=== PATIENT | male | born 1945 | race Caucasian/White ===

== ENCOUNTER 2017-09-09 03:35 | Emergency (ER) | payer OTHER ==
[~2017-09-09] VITALS: Ht 182.9 cm; Wt 109.8 kg
[2017-09-09 03:40] VITALS: BP 137/76
[2017-09-09] MEDS ORDERED: GLIMEPIRIDE2 MG PO (03:45)
[2017-09-09] MEDS ORDERED: CEFUROXIME500 MG PO (03:45)
[2017-09-09] MEDS ORDERED: ATORVASTATIN CA80 M1 PO (03:46)
[2017-09-09] MEDS ORDERED: BRILINTA90 M1 PO (03:46)
[2017-09-09] MEDS ORDERED: METOPROLOL TART50 M1 PO (03:46)
[2017-09-09] MEDS ORDERED: ASPIRIN81 M4 PO (03:46)
--- NOTE | 2017-09-09 04:25 | ED ANKLE/FOOT INJURY COMPLAINT ---
History of Present Illness General Chief Complaint: Lower Extremity Problems Stated Complaint: RIGHT FOOT SWOLLEN AND THROBBING Source: patient Exam Limitations: no limitations Vital Signs & Intake/Output Vital Signs & Intake/Output Vital Signs Date Time Temp Pulse Resp B/P B/P Pulse O2 O2 Flow FiO2 Mean Ox Delivery Rate 09/09 0356 Room Air 09/09 0340 97.8 64 18 137/76 97 Room Air Allergies Coded Allergies: MDX - Meperidine (From DEMEROL) (VOMITING 05/21/11) Reconcile Medications Aspirin (Aspirin*) 81 MG TAB.CHEW 1 TAB PO DAILY HEART (Reported) Atorvastatin Calcium 80 MG TABLET 1 TAB PO DAILY CHOLESTEROL (Reported) Cefuroxime Axetil (Cefuroxime) 500 MG TABLET 1 TAB PO BID FOOT (Reported) Glimepiride 2 MG TABLET 1 TAB PO DAILY DIABETES (Reported) Metoprolol Tartrate 50 MG TABLET 1 TAB PO BID HTN (Reported) Ticagrelor (Brilinta) 90 MG TABLET 1 TAB PO BID HEART (Reported) Triage Note: PT TO TRIAGE C/O R FOOT SWELLING X2 DAYS. DENIES FALL/INJURY/ANIMAL BITES. PT SAW PCP TODAY PLACED ON CEFTIN ABX BUT PER PT "CANNOT SLEEP," D/T THROBBING. AFEBRILE. R FOOT RED AND SWOLLEN. Triage Nurses Notes Reviewed? yes HPI: Patient presents for evaluation of severe throbbing right foot pain began gradually yesterday morning. He states that he had trouble walking particularly in the morning after the onset of pain. He states it initially felt like a stiffness. It gradually got worse prompting him to see his primary care physician at about 1:00 yesterday afternoon. He had an ultrasound to rule out a DVT and also some blood tests performed. He was then placed on an antibiotic for the possibility of a skin infection. Past History Travel History Traveled to [place] past 21 day No Medical History Any Pertinent Medical History? 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 No Review of Systems Review of Systems Constitutional: Reports: no symptoms. EENTM: Reports: no symptoms. Respiratory: Reports: no symptoms. Cardiovascular: Reports: no symptoms. GI: Reports: no symptoms. Genitourinary: Reports: no symptoms. Musculoskeletal: Reports: no symptoms. Skin: Reports: see HPI. Neurological/Psychological: Reports: no symptoms. Hematologic/Endocrine: Reports: no symptoms. Immunologic/Allergic: Reports: no symptoms. All Other Systems: Reviewed and Negative Physical Exam Physical Exam Leg/Knee/Thigh Left: SEE BELOW Comments: Gen.: Well-nourished, well-developed, no acute respiratory distress. Head: Normocephalic, atraumatic. Eyes: Normal inspection bilaterally Ears: Normal inspection bilaterally Nose: Normal inspection Throat/mouth : Moist mucosa Neck: Supple, full range of motion, no goiter Heart: Regular rate and rhythm Lungs: Quiet respirations Back: Normal range of motion Extremities: Right foot: Dorsal erythema and warmth and swelling with tenderness. No apparent trauma. The foot is neurovascularly intact distally. Neurologic: Cranial nerves grossly intact, speech is clear Skin: warm and dry Psychiatric: Calm, cooperative, no apparent delusions or hallucinations Progress Differential Diagnosis: cellulitis, gout, fracture, sprain, contusion Plan of Care: Current Medications Sig/Kimberly Start time Last Medication Dose Stop Time Status Admin Indomethacin Sodium 50 MG ONCE ONE 09/09 429 UNVr (Indocin 25 MG Cap) 09/09 430 Comments: Labs reviewed, patient's uric acid level is elevated. 09/09/2017 4:34:40 AM I have updated Bruce ON test results. I held off on prescribing the meloxicam as he has an appointment with his primary care physician at 10:00 this morning. Departure Departure Disposition: HOME OR SELF CARE Condition: Stable Clinical Impression Primary Impression: Gout Qualifiers: Gout site: foot Gout etiology: idiopathic Chronicity: acute Laterality: right Qualified Code: M10.071 - Idiopathic gout, right ankle and foot Referrals: Audra [facility],Billy Alexander (PCP/Family) Additional Instructions: Meloxicam as prescribed for pain. You may continue the antibiotic as prescribed by your primary care physician although no clinical presentation and blood work is consistent with gout. Follow-up with your primary care physician later this week for reevaluation. Return if any concerns or sudden worsening. Thank you for choosing the [facility] for your care. It was a pleasure to serve you today. Venkatesh Curran M.D. [facility] Departure Forms: Customer Survey General Discharge Information
== END 2017-09-09 04:43 ==
LOC: ERH 03:35
DX: M10.9 Gout, unspecified (principal)

== ENCOUNTER 2018-01-09 07:03 | Observation (INO) | payer OTHER ==
[~2018-01-09] VITALS: Ht 182.9 cm; Wt 118.6 kg
[~2018-01-09 07:03] MED LIST: ASPIRIN81 M4 PO; ATORVASTATIN CA80 M1 PO; BRILINTA90 M1 PO; CEFUROXIME500 MG PO; GLIMEPIRIDE2 MG PO; METOPROLOL TART50 M1 PO
[2018-01-09] MEDS ORDERED: LISINOPRIL40 M1 PO (07:29)
[2018-01-09] MEDS ORDERED: ALLOPURINOL100 M1 PO (07:29)
[2018-01-09] MEDS ORDERED: PREDNISONE5 M1 PO (07:31)
[2018-01-09] MEDS ORDERED: TOPROL XL100 M1 PO (07:31)
[2018-01-09 07:40] LABS: ABSOLUTE BASOPHIL COUNT 0 /CUMM (0.0-0.2); ABSOLUTE EOSINOPHIL COUNT 0.2 /CUMM (0.0-0.7); ABSOLUTE GRANULOCYTE CT 8.3 /CUMM (1.4-6.5); ABSOLUTE LYMPH COUNT 0.9 /CUMM (1.2-3.4); ABSOLUTE MONOCYTE COUNT 0.7 /CUMM (0.10-0.60); BASOPHIL % 0.3 % (0.0-2.0); EOSINOPHIL % 1.6 % (0-5); GRANULOCYTE % 82.8 % (42.2-75.2); HEMATOCRIT 38.4 % (42-52); MEAN CORPUSCULAR HGB 28.6 PG (27.0-31.0); MEAN CORPUSCULAR HGB CONC 32.7 G/DL (33.0-37.0); MEAN CORPUSCULAR VOLUME 87.4 FL (80.0-94.0); PLATELET COUNT 201 /CUMM (130-400); RBC DISTRIBUTION WIDTH 16.4 % (11.5-14.5); RED BLOOD CELL CT 4.39 /CUMM (4.70-6.10)
--- NOTE | 2018-01-09 08:21 | ED DYSPNEA/ASTHMA COMPLAINT ---
History of Present Illness General Chief Complaint: Dyspnea (COPD, CHF, Other) Stated Complaint: SOB Source: patient, family, old records Exam Limitations: no limitations Vital Signs & Intake/Output Vital Signs & Intake/Output Vital Signs Date Time Temp Pulse Resp B/P B/P Pulse O2 O2 Flow FiO2 Mean Ox Delivery Rate 01/09 858 98.4 65 18 148/81 01/09 858 98.4 65 18 148/81 98 Nasal 2.0L Cannula 01/09 721 98 Room Air 01/09 718 80 18 177/89 95 Room Air 01/09 705 95.9 70 22 170/91 94 Room Air Allergies Coded Allergies: meperidine (Mild, VOMITING 01/09/18) Reconcile Medications Allopurinol 100 MG TABLET 1 TAB PO DAILY GOUT (Reported) Aspirin (Aspirin*) 81 MG TAB.CHEW 1 TAB PO DAILY HEART (Reported) Atorvastatin Calcium 80 MG TABLET 1 TAB PO DAILY CHOLESTEROL (Reported) Glimepiride 2 MG TABLET 1 TAB PO DAILY DIABETES (Reported) Lisinopril 40 MG TABLET 1 TAB PO DAILY BP (Reported) Metoprolol Succ XL (Toprol XL) 100 MG TAB.ER.24H 1 TAB PO DAILY BP (Reported) Prednisone 5 MG TABLET 1 TAB PO DAILY GOUT (Reported) Ticagrelor (Brilinta) 90 MG TABLET 1 TAB PO BID HEART (Reported) Core Measure Meds Pre-Hospital aspirin Triage Note: 72 YO MALE TO TRIAGE FOR EVAL OF SOB SINCE THIS AM. PT DENIES ANY PAIN. RA SATS 94%. HX OF [place] IN SEPTEMBER. Triage Nurses Notes Reviewed? yes Onset: Morning Duration: hour(s):, better, continues in ED Timing: recent history Severity: moderate Activities at Onset: rest Prior Episodes/Possible Cause: no prior episodes Modifying Factors: Improves With: rest. Worsens With: movement. Associated Symptoms: weakness HPI: 3 hours prior to admission patient awoke with generalized weakness and diaphoresis shortness of breath worse with ambulation. Symptoms are now better he took his morning meds including aspirin. He denies fever chills nausea vomiting diarrhea abdominal pain chest pain headache dysuria rash bleeding. Past History Travel History Traveled to [place] past 21 day No Medical History Any Pertinent Medical History? 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 No Review of Systems Review of Systems Constitutional: Reports: see HPI, weakness. EENTM: Reports: no symptoms. Respiratory: Reports: see HPI, short of breath. Cardiovascular: Reports: no symptoms. GI: Reports: no symptoms. Genitourinary: Reports: no symptoms. Musculoskeletal: Reports: no symptoms. Skin: Reports: no symptoms. Neurological/Psychological: Reports: no symptoms. Hematologic/Endocrine: Reports: no symptoms. Immunologic/Allergic: Reports: no symptoms. All Other Systems: Reviewed and Negative Physical Exam Physical Exam General Appearance: well developed/nourished, alert, awake, anxious, mild distress, obese Head: atraumatic, normal appearance Eyes: Bilateral: normal appearance, PERRL, EOMI. Ears, Nose, Throat: normal pharynx, normal ENT inspection, hearing grossly normal Neck: normal inspection, supple, full range of motion, no midline tenderness Respiratory: chest non-tender, no respiratory distress, quiet respiration, crackles Cardiovascular: regular rate/rhythm, normal peripheral pulses, norml femoral pulses equa Peripheral Pulses: 4+ carotid (R), 4+ carotid (L) Gastrointestinal: normal bowel sounds, soft, non-tender, no organomegaly Extremities: normal inspection, normal capillary refill, normal range of motion, pedal edema (trace) Neurologic/Psych: no motor/sensory deficits, awake, alert, oriented x 3, normal gait, normal mood/affect, 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 Yes No ASA d/t Pharmacological CI CVA/TIA Diagnosis No Sepsis Present: No Sepsis Focused Exam Completed? No Progress Differential Diagnosis: CHF, COPD, pneumonia Plan of Care: Orders Procedure Date/time Status Heart Healthy Diet 01/09 L Active Patient Data 01/09 842 Active OXYGEN SETUP (GEN) 01/09 822 Active Saline Lock 01/[address] in observation 01/09 822 Active Vital Signs 01/09 822 Active Activity/Ambulation 01/09 822 Active Code Status 01/09 822 Active Intake & Output 01/09 725 Active TROPONIN LEVEL 01/09 721 Complete MAGNESIUM 01/09 721 Complete COMPREHENSIVE METABOLIC PANEL 01/09 721 Complete CBC WITHOUT DIFFERENTIAL 01/09 721 Complete B-TYPE NATRIURETIC PEP (BNP) 01/09 721 Complete EKG 01/09 709 Active Current Medications Sig/Kimberly Start time Last Medication Dose Stop Time Status Admin Allopurinol 100 MG DAILY 01/10 900 AC (Zyloprim) Aspirin 81 MG DAILY 01/10 900 AC (Aspirin) Atorvastatin Calcium 80 MG DAILY 01/10 900 AC (Lipitor) Metoprolol Succinate 100 MG DAILY 01/10 900 AC (Toprol Xl) Ticagrelor 90 MG BID 01/09 2100 AC (Brilinta) Prednisone 5 MG DAILY 01/09 930 AC Laboratory Tests 01/09/18722: Anion Gap 8, Estimated GFR 55 L, BUN/Creatinine Ratio 20.0, Glucose 153 H, Calcium 8.6, Magnesium 1.5 L, Total Bilirubin 0.8, AST 41, ALT 68, Alkaline Phosphatase 129 H, Troponin I 0.08, Djx-[id number]-Hdgftqnumds Pept 1400 H, Total Protein 6.3, Albumin 3.7, Globulin 2.6, Albumin/Globulin Ratio 1.4, CBC w Diff NO MAN DIFF REQ, RBC 4.39 L, MCV 87.4, MCH 28.6, MCHC 32.7 L, RDW 16.4 H, MPV 9.0, Gran % 82.8 H, Lymphocytes % 8.8 L, Monocytes % 6.5, Eosinophils % 1.6, Basophils % 0.3, Absolute Granulocytes 8.3 H, Absolute Lymphocytes 0.9 L, Absolute Monocytes 0.7 H, Absolute Eosinophils 0.2, Absolute Basophils 0 Diagnostic Imaging: Viewed by Me: Radiology Read. Discussed w/RAD: Radiology Read. CXR Impression: Cardiomegaly with mild pulmonary vascular congestion. Initial ED EKG: normal axis, normal intervals, normal p-waves, normal QRS complex, normal sinus rhythm, ST depression (lateral), abnormal Q waves ( inferior) Prior EKG: changed Rhythm Strip: normal sinus rhythm Departure Departure Disposition: STILL A PATIENT Condition: Fair Clinical Impression Primary Impression: ST segment changes on electrocardiogram Secondary Impressions: CHF (congestive heart failure), Dyspnea, Hypomagnesemia Referrals: Tiffanie AGUILAR,Corey Garcia (PCP/Family) Departure Forms: Customer Survey General Discharge Information Admission Note Documentation of Exam: Documentation of any treatments & extenuating circumstances including Concerns Regarding Discharge (functional status, medication knowledge or non-compliance, living conditions, etc.) that warrant an admission rather than observation: Observation Note Spoke With: Miya Rivera MD Physician Advisor Notified: NOEMI PAZ DO Place Patient In: Non-ED OBS Care Area Rationale for Observation: My rational for observation is as follows serial lab exam serial EKG cardiac monitoring medication adjustment cardiology evaluation continuing care discharge planning. Critical Care Note Critical Care Note Critical Care Time: non-applicable
--- NOTE | 2018-01-09 08:30 | RADIOLOGY REPORT ---
EXAMINATION: XR PORTABLE CHEST CLINICAL INFORMATION: SOB, as CHF and diaphoresis. COMPARISON: None TECHNIQUE: Portable frontal view of the chest was obtained. FINDINGS: There is overlying cardiomegaly with increased pulmonary vascularity suggestive mild congestion. The lungs are expanded without consolidation. No gross bony abnormality seen. IMPRESSION: Cardiomegaly with mild pulmonary vascular congestion.
[2018-01-09] MEDS ORDERED: LISINOPRIL20 M1 PO (09:35)
--- NOTE | 2018-01-09 09:53 | History & Physical ---
Cliff Lyon 01/09/18 0952: General Information and HPI MD Statement: I have seen and personally examined JEREMY BLAIR and documented this H&P. The patient is a 72 year old M who presented with a patient stated chief complaint of shortness of breath Source of Information: patient, family Exam Limitations: no limitations History of Present Illness: This is a 72-year-old male with past medical history significant for OH status post drug eluting stent placement in 2018, on dual antiplatelet agents, gout, diabetes mellitus, hypertension, carpal tunnel syndrome presented to the hospital with chief complaint of acute worsening shortness of breath since morning. Patient presented with acute worsening shortness of breath which started earlier this morning around 4 AM. He reports sudden onset of shortness of breath at resting situation associated with extreme sweating. He denied any typical chest pain, jaw pain, nausea, vomiting, diaphoresis. Patient had recent heart attack in September 2017, admitted to [facility]. He underwent coronary angiogram s/p drug-eluting stent was placed. Since then he has been taking dual antiplatelets aspirin 81 and Brilinta 90 daily. He has been following up Dr. Chavez financial investment adviser. He has no cardiac complaints after the surgery. Not sure about his baseline echocardiogram results. Also recently he was treated for acute gout as an outpatient basis with prednisone and antibiotic. He denied any fever, chills, chest pain, nausea, vomiting, abdominal pain, change in bladder or bowel habits. He denies smoking, alcohol abuse, illicit drug abuse. Allergies/Medications Allergies: Coded Allergies: meperidine (Mild, VOMITING 01/09/18) Home Med list Allopurinol 100 MG TABLET 1 TAB PO DAILY GOUT (Reported) Aspirin (Aspirin*) 81 MG TAB.CHEW 1 TAB PO DAILY HEART (Reported) Atorvastatin Calcium 80 MG TABLET 1 TAB PO DAILY CHOLESTEROL (Reported) Glimepiride 2 MG TABLET 1 TAB PO DAILY DIABETES (Reported) Lisinopril 20 MG TABLET 1 TAB PO DAILY HTN (Reported) Metoprolol Succ XL (Toprol XL) 100 MG TAB.ER.24H 1 TAB PO DAILY BP (Reported) Prednisone 5 MG TABLET 1 TAB PO DAILY GOUT (Reported) Ticagrelor (Brilinta) 90 MG TABLET 1 TAB PO BID HEART (Reported) Compliance With Home Meds: GOOD Past History Travel History Traveled to [place] past 21 day No Medical History Neurological: NONE EENT: NONE Cardiovascular: hypertension, myocardial infarction, STENT Respiratory: NONE Gastrointestinal: NONE Hepatic: NONE Renal: NONE Musculoskeletal: gout Psychiatric: NONE Endocrine: diabetes Blood Disorders: NONE Cancer(s): NONE 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 Denies: chills, diaphoresis, fever, malaise, weakness, unexplained weight loss. EENTM: Denies: blurred vision, double vision, visual changes. Cardiovascular: Denies: chest pain, edema, orthopena, palpitations, peripheral edema, syncope. Respiratory: Reports: short of breath. Denies: cough, hemoptysis, orthopnea, sputum production. GI: Denies: abdominal pain, bloating, constipation, diarrhea, distention, bowel incontinence, melena, nausea. Genitourinary: Denies: discharge, dysuria, frequency. Musculoskeletal: Denies: back pain, gout, joint pain, joint swelling. Skin: Denies: cysts, jaundice, lesions. Neurological/Psychological: Denies: anxiety, ataxia, dementia, emotional problems, headache, numbness, paresthesia. Exam & Diagnostic Data Last 24 Hrs of Vital Signs/I&O Vital Signs Date Time Temp Pulse Resp B/P B/P Pulse O2 O2 Flow FiO2 Mean Ox Delivery Rate 01/09 858 98.4 65 18 148/81 01/09 858 98.4 65 18 148/81 98 Nasal 2.0L Cannula 01/09 0721 98 Room Air 01/09 0718 80 18 177/89 95 Room Air 01/09 0705 95.9 70 22 170/91 94 Room Air Intake & Output 01/09 1600 01/09 0800 01/09 0000 Intake Total 0 Output Total Balance 0 Intake, Oral 0 Patient 111.13 kg Weight Weight Reported by Patient Measurement Method Physical Exam General Appearance Alert, Oriented X3, Cooperative, No Acute Distress Skin No Rashes, No Breakdown Skin Temp/Moisture Exam: Warm/Dry Sepsis Skin Exam (color): Normal for Ethnicity HEENT Atraumatic, PERRLA, EOMI, Mucous Membr. moist/pink Neck Supple, No JVD, No thryomegaly Lymphatic Cervical nl Cardiovascular Regular Rate, Normal S1, Normal S2, No Murmurs Lungs Clear to Auscultation, Normal Air Movement Abdomen Normal Bowel Sounds, Soft, No Tenderness Neurological Normal Speech, Strength at 5/5 X4 Ext, Sensation Intact, Reflexes 2 + Extremities No Clubbing, No Cyanosis, No Edema, Normal Pulses, No Tenderness/ Swelling Vascular Normal Pulses, Pulses Symmetrical Last 24 Hrs of Labs/Sampson: Laboratory Tests 01/09/18 0723: Anion Gap 8, Estimated GFR 55 L, BUN/Creatinine Ratio 20.0, Glucose 153 H, Calcium 8.6, Magnesium 1.5 L, Total Bilirubin 0.8, AST 41, ALT 68, Alkaline Phosphatase 129 H, Troponin I 0.08, Zde-V-Dipnfbfdhoc Pept 1400 H, Total Protein 6.3, Albumin 3.7, Globulin 2.6, Albumin/Globulin Ratio 1.4, CBC w Diff NO MAN DIFF REQ, RBC 4.39 L, MCV 87.4, MCH 28.6, MCHC 32.7 L, RDW 16.4 H, MPV 9.0, Gran % 82.8 H, Lymphocytes % 8.8 L, Monocytes % 6.5, Eosinophils % 1.6, Basophils % 0.3, Absolute Granulocytes 8.3 H, Absolute Lymphocytes 0.9 L, Absolute Monocytes 0.7 H, Absolute Eosinophils 0.2, Absolute Basophils 0 Assessment/Plan Assessment: This is a 72-year-old male with past medical history significant for OH status post drug eluting stent placement in 2018, on dual antiplatelet agents, gout, diabetes mellitus, hypertension, carpal tunnel syndrome presented to the hospital with chief complaint of acute worsening shortness of breath since morning. Vitals afebrile, heart rate 70, respiratory rate 22 , blood pressure 170/90, saturating at 94 on ra. Labs WBC 10, hemoglobin 12, hematocrit 38, platelets 201 Sodium 140, potassium 4.8, BUN 26, creatinine 1.3, glucose 153 Chest x-ray showed cardiomegaly with mild pulmonary venous congestion EKG normal sinus rhythm, rate 74, left axis deviation, minor ST-T wave changes in V2 V3 V4. No baseline EKG to compare ----- EKG changes Patient had recent heart attack in September 2017, admitted to [facility]. He underwent coronary angiogram s/p drug-eluting stent was placed. Since then he has been taking dual antiplatelets aspirin 81 and Brilinta 90 daily. He has been following up Dr. Chavez financial investment adviser. He has no cardiac complaints after the surgery. Not sure about his baseline echocardiogram results. Patient now presented with acute worsening shortness of breath. First set of troponin was negative with EKG findings suggestive of minimal ST changes in V2 V3 V4. * Observation in telemetry floor * Serial troponins and EKG * Cardiology consult with Dr. Jordan * Continuous telemetry monitoring * Continue aspirin 81 daily, Lipitor 80 daily, Brilinta 90 daily * Continue metoprolol succinate 100 daily * Follow-up echocardiogram Acute dyspnea Patient presented with sudden onset of worsening shortness of breath. Off note patient reports that he has no history of heart failure, does not take any Lasix at home. He does not use any oxygen at home. He has no history of COPD. * Given his recent heart attack, new onset heart failure is one of the possibilities. No baseline echocardiogram. * Observing telemetry floor * Continuous telemetry monitoring * Follow-up echocardiogram * Serial troponin and EKGs * Monitor ins and outs * Lasix 40 mg p.o. daily pending cardio recommendations * Follow-up creatinine and electrolytes * Will get records from [facility] Gout continue allopurinol 100 daily and prednisone 5 daily Diabetes Accu-Cheks and NovoLog sliding scale Hypertension continue lisinopril 20 daily and metoprolol succinate 100 daily Patient is full code DVT prophylaxis subcu heparin Regular diet Pain pathway ordered As Ranked By This Provider Problem List: 1. Hypomagnesemia 2. CHF (congestive heart failure) 3. Gout 4. Dyspnea 5. ST segment changes on electrocardiogram Core Measures/Misc (01/18) Acute Coronary Syndrome ACS Diagnosis: No Congestive Heart Failure Congestive Heart Failure Diagnosis No Cerebrovascular Accident CVA/TIA Diagnosis: No VTE (View Protocol) VTE Risk Factors No risk factors No Mechanical VTE Prophylaxis d/t N/A MechProphylax Ordered No VTE Pharm Prophylaxis d/t NA PharmProphylax ordered Sepsis (View protocol) Sepsis Present: No If YES complete Sepsis Event Note If YES complete Sepsis Event Note Miguel AGUILAR,Miya 01/09/18 1530: Core Measures/Misc (01/18) Sepsis (View protocol) If YES complete Sepsis Event Note If YES complete Sepsis Event Note Attending MD Review Statement Attending Statement Attending MD Statement: examined this patient, discuss w/resident/PA/TECHNOLOGY STRATEGIST, agreed w/resident/PA/TECHNOLOGY STRATEGIST, discussed with family, reviewed EMR data (avail), discussed with nursing, reviewed images, amended to note Attending Assessment/Plan: 72 y/o M with h sig for OH status post drug eluting stent placement in 2018, on dual antiplatelet agents, gout, diabetes mellitus, hypertension, carpal tunnel syndrome, presented with shortness of breath, diaphoresis and restlessness. The symptoms occurred early in the morning between around 45:00. Patient took his prednisone and he normally does feel restless for some time. This restlessness lasted a long time this morning and patient also felt short of breath with diaphoresis therefore he presented to the emergency room. In the emergency room he had some nonspecific EKG changes but troponins were negative. Chest x-ray showing mild pulmonary vascular congestion. Patient denies any weight gain or swelling. Vital Signs Date Time Temp Pulse Resp B/P B/P Pulse O2 O2 Flow FiO2 Mean Ox Delivery Rate 01/09 1448 98.8 66 20 140/76 96 Room Air 01/09 1156 98.6 79 22 132/76 97 Room Air Room Air 01/09 0858 98.4 65 18 148/81 01/09 0858 98.4 65 18 148/81 98 Nasal 2.0L Cannula 01/09 0721 98 Room Air 01/09 0718 80 18 177/89 95 Room Air 01/09 0705 95.9 70 22 170/91 94 Room Air on exam; aox3, nad cv; s1,s2, rrr resp; clear abd; soft, nt, bs+ ext; 1+ edema Laboratory Tests 01/09 01/09 1320 0723 Chemistry Sodium (137 - 145 mmol/L) 140 Potassium (3.5 - 5.1 mmol/L) 4.8 Chloride (98 - 107 mmol/L) 107 Carbon Dioxide (22 - 30 mmol/L) 25 Anion Gap (5 - 16) 8 BUN (9 - 20 mg/dL) 26 H Creatinine (0.7 - 1.2 mg/dL) 1.3 H Estimated GFR (>60 ml/min) 55 L BUN/Creatinine Ratio (7 - 25 %) 20.0 Glucose (65 - 99 mg/dL) 153 H Calcium (8.4 - 10.2 mg/dL) 8.6 Magnesium (1.6 - 2.3 mg/dL) 1.5 L Total Bilirubin (0.2 - 1.3 mg/dL) 0.8 AST (17 - 59 U/L) 41 ALT (21 - 72 U/L) 68 Alkaline Phosphatase (< 127 U/L) 129 H Troponin I (<0.11 ng/ml) Pending 0.08 [id number] Pept (<125 pg/mL) 1400 H Total Protein (6.3 - 8.2 g/dL) 6.3 Albumin (3.5 - 5.0 g/dL) 3.7 Globulin (1.9 - 4.2 gm/dL) 2.6 Albumin/Globulin Ratio (1.1 - 2.2 %) 1.4 Hematology CBC w Diff NO MAN DIFF REQ WBC (4.8 - 10.8 /CUMM) 10.0 RBC (4.70 - 6.10 /CUMM) 4.39 L Hgb (14.0 - 18.0 G/DL) 12.6 L Hct (42 - 52 %) 38.4 L MCV (80.0 - 94.0 FL) 87.4 MCH (27.0 - 31.0 PG) 28.6 MCHC (33.0 - 37.0 G/DL) 32.7 L RDW (11.5 - 14.5 %) 16.4 H Plt Count (130 - 400 /CUMM) 201 MPV (7.4 - 10.4 FL) 9.0 Gran % (42.2 - 75.2 %) 82.8 H Lymphocytes % (20.5 - 51.1 %) 8.8 L Monocytes % (1.7 - 9.3 %) 6.5 Eosinophils % (0 - 5 %) 1.6 Basophils % (0.0 - 2.0 %) 0.3 Absolute Granulocytes (1.4 - 6.5 /CUMM) 8.3 H Absolute Lymphocytes (1.2 - 3.4 /CUMM) 0.9 L Absolute Monocytes (0.10 - 0.60 /CUMM) 0.7 H Absolute Eosinophils (0.0 - 0.7 /CUMM) 0.2 Absolute Basophils (0.0 - 0.2 /CUMM) 0 EKG>> NSR. CXR: Mild pulm vascular congestion. A/P: 72 y/o M with pmh sig for OH status post drug eluting stent placement in 2018, on dual antiplatelet agents, gout, diabetes mellitus, hypertension, carpal tunnel syndrome on telemetry observation with shortness of breath, need to rule out ACS and possible mild acute CHF. Please trend troponins. Appreciate cardiology input. Follow up an echocardiogram. Continue his home cardiac medications. Low-dose Lasix will be added. Please monitor strict intake and output as well as daily weights. Pharmacologic DVT prophylaxis and patient is a full code.
--- NOTE | 2018-01-09 11:00 | Cons- Cardiology ---
Coopre Marc 01/09/18 1058: General Information and HPI Consulting Request Date of Consult: 01/09/18 Requested By: Miya Rivera MD Reason for Consult: Dyspnea Source of Information: patient, family, old records Exam Limitations: no limitations History of Present Illness: This is a pleasant 72-year-old male with history of coronary artery disease status post CHUY to proximal RCA September 2017, [id number] CAD to LAD left circumflex, diabetes hypertension chronic kidney disease gout presents to the emergency room with family for evaluation after he developed sudden onset of shortness of breath diaphoresis since 4:00 this morning. Patient states he denies chest pain,palpitations,nausea vomiting. He was in normal state of health yesterday-went to the gym and exercisedon the treadmill and bike without issue or symptoms. He is currently on prednisone for gout exacerbation. He denies history of similar episodes in the past. No recent weight gain leg edema abdominal pain nausea vomiting diarrhea. In the ED,EKG showed new lateral changes compared to previous ER ekg [id number]. Initial troponin 0.08, bnp 1400. CXR demonstrated mild pulmonary congestion. Currently the patient is resting in no acute distress he denies any complaints at this time, he was initially on O2 2 L with significant improvement and resolution. He has been compliant with all of his home medications Allergies/Medications Allergies: Coded Allergies: meperidine (Mild, VOMITING 01/09/18) Home Med List: Allopurinol 100 MG TABLET 1 TAB PO DAILY GOUT (Reported) Aspirin (Aspirin*) 81 MG TAB.CHEW 1 TAB PO DAILY HEART (Reported) Atorvastatin Calcium 80 MG TABLET 1 TAB PO DAILY CHOLESTEROL (Reported) Glimepiride 2 MG TABLET 1 TAB PO DAILY DIABETES (Reported) Lisinopril 20 MG TABLET 1 TAB PO DAILY HTN (Reported) Metoprolol Succ XL (Toprol XL) 100 MG TAB.ER.24H 1 TAB PO DAILY BP (Reported) Prednisone 5 MG TABLET 1 TAB PO DAILY GOUT (Reported) Ticagrelor (Brilinta) 90 MG TABLET 1 TAB PO BID HEART (Reported) Current Medications: Current Medications Sig/Kimberly Start time Last Medication Dose Route Stop Time Status Admin Acetaminophen 650 MG Q6P PRN 01/09 945 AC PO Allopurinol 100 MG DAILY 01/10 900 AC PO Aspirin 81 MG DAILY 01/10 900 AC PO Atorvastatin Calcium 80 MG DAILY 01/10 900 AC PO Furosemide 40 MG DAILY 01/10 900 AC PO Furosemide 0 .STK-MED ONE 01/10 0849 DC IV Furosemide 40 MG ONCE ONE 01/09 845 DC 01/09 IV 01/10 0846 0858 Heparin Sodium 5,000 UNIT Q8 01/09 945 AC (Porcine) SC Insulin Aspart 0 TIDAC 01/09 1000 AC SC Lisinopril 20 MG DAILY 01/10 900 AC PO Magnesium Oxide 400 MG ONE ONE 01/10 0845 DC 01/09 PO 01/10 0846 0910 Metoprolol Succinate 100 MG DAILY 01/10 900 AC PO Metoprolol Tartrate 0 .STK-MED ONE 01/10 0849 DC IV Metoprolol Tartrate 5 MG ONCE ONE 01/09 845 DC IV 01/09 846 Prednisone 5 MG DAILY 01/09 930 AC PO Ticagrelor 90 MG BID 01/09 2100 AC PO Review of Systems Review of Systems: Review of systems: See HPI, All other systems negative. Constitutional, no chills no fever, no malaise no weight loss HEENT: no sore throat no congestion, no ear pain Cardiovascular: No chest pain , no palpitation Skin: no rashes, no change in skin Respiratory: (+) dyspnea no cough no sputum no hemoptysis GI: No nausea no vomiting, no diarrhea, no bloating/constipation : No dysuria Muscle skeletal: No joint pain, no back pain, no neck pain, Neurologic: , no headache Psych: No stress Heme/endocrine: No bruising Immunology: No lymphadenopathy Past History Travel History Traveled to [place] past 21 day No Medical History Neurological: NONE EENT: NONE Cardiovascular: hypertension, myocardial infarction (chuy to prox RCA), STENT Respiratory: NONE Gastrointestinal: NONE Hepatic: NONE Renal: NONE Musculoskeletal: gout Psychiatric: NONE Endocrine: diabetes Blood Disorders: NONE Cancer(s): NONE 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 Surgical History Surgical History: PTCA / stent Psychosocial History Smoking Status: Never Smoked ETOH Use: denies use Illicit Drug Use: denies illicit drug use Exam & Diagnostic Data Vital Signs and I&O Vital Signs Date Time Temp Pulse Resp B/P B/P Pulse O2 O2 Flow FiO2 Mean Ox Delivery Rate 01/09 858 98.4 65 18 148/81 01/09 858 98.4 65 18 148/81 98 Nasal 2.0L Cannula 01/09 721 98 Room Air 01/09 0718 80 18 177/89 95 Room Air 01/09 705 95.9 70 22 170/91 94 Room Air Intake & Output 01/09 0000 01/08 0000 Intake Total 0 Output Total Balance 0 Intake, Oral 0 Patient 245 lb Weight Weight Reported by Patient Measurement Method Physical Exam: Well-developed well-nourished person in no acute distress HEENT: Normal EENT exam; PERRL, EOMI. HEAD is atraumatic. moist mucous membranes. Neck: Supple, normal range of motion Cardiovascular: Regular rate and rhythms no murmurs rubs or gallops, normal JVP Respiratory: Chest nontender.There were no bony deformities, no asymmetry. No respiratory distress. Patient speaking in full complete sentences. Breath sounds clear to auscultation bilaterally: NO W/R/R Abdomen: Soft, nontender Extremity: No edema, full range of motion of extremities, normal and equal pulses bilaterally, 5 out of 5 strength noted to bilateral upper and lower extremities Neuro: Alert oriented x3, motor sensory normal There were no obvious focal neurologic abnormalities. Skin: No appreciable rash on exposed skin, skin is warm and dry. Psych: Mood and affect is normal, memory and judgment is normal. Labs/Sampson Results: Laboratory Tests 01/09 723 Chemistry Sodium (137 - 145 mmol/L) 140 Potassium (3.5 - 5.1 mmol/L) 4.8 Chloride (98 - 107 mmol/L) 107 Carbon Dioxide (22 - 30 mmol/L) 25 Anion Gap (5 - 16) 8 BUN (9 - 20 mg/dL) 26 H Creatinine (0.7 - 1.2 mg/dL) 1.3 H Estimated GFR (>60 ml/min) 55 L BUN/Creatinine Ratio (7 - 25 %) 20.0 Glucose (65 - 99 mg/dL) 153 H Calcium (8.4 - 10.2 mg/dL) 8.6 Magnesium (1.6 - 2.3 mg/dL) 1.5 L Total Bilirubin (0.2 - 1.3 mg/dL) 0.8 AST (17 - 59 U/L) 41 ALT (21 - 72 U/L) 68 Alkaline Phosphatase (< 127 U/L) 129 H Troponin I (<0.11 ng/ml) 0.08 [id number]-Nczqgfesvhb Pept (<125 pg/mL) 1400 H Total Protein (6.3 - 8.2 g/dL) 6.3 Albumin (3.5 - 5.0 g/dL) 3.7 Globulin (1.9 - 4.2 gm/dL) 2.6 Albumin/Globulin Ratio (1.1 - 2.2 %) 1.4 Hematology CBC w Diff NO MAN DIFF REQ WBC (4.8 - 10.8 /CUMM) 10.0 RBC (4.70 - 6.10 /CUMM) 4.39 L Hgb (14.0 - 18.0 G/DL) 12.6 L Hct (42 - 52 %) 38.4 L MCV (80.0 - 94.0 FL) 87.4 MCH (27.0 - 31.0 PG) 28.6 MCHC (33.0 - 37.0 G/DL) 32.7 L RDW (11.5 - 14.5 %) 16.4 H Plt Count (130 - 400 /CUMM) 201 MPV (7.4 - 10.4 FL) 9.0 Gran % (42.2 - 75.2 %) 82.8 H Lymphocytes % (20.5 - 51.1 %) 8.8 L Monocytes % (1.7 - 9.3 %) 6.5 Eosinophils % (0 - 5 %) 1.6 Basophils % (0.0 - 2.0 %) 0.3 Absolute Granulocytes (1.4 - 6.5 /CUMM) 8.3 H Absolute Lymphocytes (1.2 - 3.4 /CUMM) 0.9 L Absolute Monocytes (0.10 - 0.60 /CUMM) 0.7 H Absolute Eosinophils (0.0 - 0.7 /CUMM) 0.2 Absolute Basophils (0.0 - 0.2 /CUMM) 0 Diagnostic Data EKG Results Normal sinus rhythm at 70, nonspecific ST segment changes unchanged from EKG as an outpatient on September 23 of this year. Personally reviewed by me. Telemetry: Sinus rhythm at 70s personally reviewed by me CXR Results FINDINGS: There is overlying cardiomegaly with increased pulmonary vascularity suggestive mild congestion. The lungs are expanded without consolidation. No gross bony abnormality seen. IMPRESSION: Cardiomegaly with mild pulmonary vascular congestion. Assessment/Plan Assessment/Plan 72-year-old male with history of coronary artery disease status post CHUY to proximal RCA September 2017, [id number] CAD to LAD left circumflex, diabetes hypertension chronic kidney disease gout presents to the emergency room with family for evaluation after he developed sudden onset of shortness of breath diaphoresis with new EKG changes from previous ER EKG Assessment: Shortness of breath History of coronary artery disease s/p CHUY to prox RCA 09/18 History of diabetes History of hypertension Recommendations: The EKG obtained in the ED is unchanged from outpatient EKG in September 2017. The patient denies any symptoms are current. Bedside TTE was performed pending results. Would continue current home medical management. Continue home metoprolol aspirin Brilinta. Continuous telemetry monitoring. Trend BMP. Lasix 20 mg daily, trend troponin The plan was discussed with Dr. bowers. Addendum to follow. Thank you for the opportunity to assist in the patient's care. These do not hesitate to call with any questions. Cooper Geiger PA-C [facility] [address] [place] [address], [address] [place] [address] Consult Acknowledgment - Thank you for your consult request. Taran Bowers MD 01/09/18 1147: Assessment/Plan Assessment/Plan The patient was seen and examined at the bedside. I directed and agree with the above assessment and plan. Patient will be placed on observation. An echocardiogram will be obtained. Continue to diuresis. If patient remains stable we will consider discharge tomorrow. Taran Bowers MD [facility] Consult Acknowledgment - Thank you for your consult request.
[2018-01-09 11:56] VITALS: BP 132/76
[2018-01-09 14:48] VITALS: BP 140/76
--- NOTE | 2018-01-09 19:42 | ECHOCARDIOGRAM REPORT ---
JEREMY BLAIR Age: 72 : 1945 Gender: M Exam Date: 01/09/2018 10:20 Exam Location: ER Ht (in): 72 Wt (lb): 245 BSA: 2.41 BP: 171 / 94 Ordering Physician: Melodie Lyon MD Referring Physician: Melodie Lyon MD Technologist: Vandana Hunt [facility] Room Number: ERHI-03 Indications: Cardiomyopathy, unspecified Rhythm: Technical Quality: Fair FINDINGS Left Ventricle Normal size left ventricle. Left ventricular wall thickness mildly increased. No obvious regional wall motion abnormalities. Left ventricular ejection fraction is estimated at 55 %. Right Ventricle Normal right ventricular size and function. Right Atrium Normal right atrial size. Left Atrium Mild left atrial dilatation. Mitral Valve Mild mitral annular calcification. Mild mitral regurgitation. Aortic Valve No aortic stenosis. Trileaflet aortic valve. Tricuspid Valve No tricuspid stenosis. Trace tricuspid regurgitation. Unable to estimate the right ventricular systolic pressure. Pulmonic Valve Pulmonic valve not well visualized, grossly normal. Pericardium No pericardial effusion. Great Vessels Normal size aortic root. CONCLUSIONS Normal size left ventricle. Left ventricular wall thickness mildly increased. No obvious regional wall motion abnormalities. Left ventricular ejection fraction is estimated at 55 %. Normal right ventricular size and function. Mild left atrial dilatation. Unable to estimate the right ventricular systolic pressure. No pericardial effusion. Viet Rivera M.D. (Electronically Signed) Final Date: 09 January 2018 19:39 MEASUREMENTS (Male / Female) Normal Values 2D ECHO LV Diastolic Diameter PLAX 4.5 cm 4.2 - 5.9 / 3.9 - 5.3 cm LV Systolic Diameter PLAX 3.3 cm 2.1 - 4.0 cm LV Fractional Shortening PLAX 26.7 % 25 - 46 % LV Ejection Fraction 2D Teich 52.3 % IVS Diastolic Thickness 1.4 cm LVPW Diastolic Thickness 1.1 cm LV Relative Wall Thickness 0.6 LVOT Diameter 2.0 cm Aortic Root Diameter 3.2 cm LA Systolic Diameter LX 3.5 cm 3.0 - 4.0 / 2.7 - 3.8 cm LA Volume 85.0 cm 18 - 58 / 22 - 52 cm DOPPLER AV Peak Velocity 140.0 cm/s AV Peak Gradient 7.8 mmHg LVOT Peak Velocity 96.3 cm/s LVOT Peak Gradient 3.7 mmHg AV Area Cont Eq pk 2.2 cm Mitral E Point Velocity 108.0 cm/s Mitral A Point Velocity 52.8 cm/s Mitral E to A Ratio 2.0 MV Deceleration Time 313.0 ms PV Peak Velocity 107.0 cm/s PV Peak Gradient 4.6 mmHg LV E' Lateral Velocity 8.7 cm/s Mitral E to LV E' Lateral Ratio 12.4 LV E' Septal Velocity 4.9 cm/s Mitral E to LV E' Septal Ratio 22.2
[2018-01-09 22:10] VITALS: BP 118/72
[2018-01-10 06:55] VITALS: BP 120/80
[2018-01-10 08:08] LABS: ABSOLUTE BASOPHIL COUNT 0 /CUMM (0.0-0.2); ABSOLUTE EOSINOPHIL COUNT 0.2 /CUMM (0.0-0.7); ABSOLUTE GRANULOCYTE CT 7.3 /CUMM (1.4-6.5); ABSOLUTE LYMPH COUNT 1.4 /CUMM (1.2-3.4); ABSOLUTE MONOCYTE COUNT 0.6 /CUMM (0.10-0.60); BASOPHIL % 0.4 % (0.0-2.0); EOSINOPHIL % 1.7 % (0-5); GRANULOCYTE % 76.8 % (42.2-75.2); HEMATOCRIT 38.5 % (42-52); MEAN CORPUSCULAR HGB 28.7 PG (27.0-31.0); PLATELET COUNT 218 /CUMM (130-400); RBC DISTRIBUTION WIDTH 16.6 % (11.5-14.5); RED BLOOD CELL CT 4.42 /CUMM (4.70-6.10); WHITE BLOOD CELL COUNT 9.5 /CUMM (4.8-10.8)
[2018-01-10 08:24] VITALS: BP 120/80
--- NOTE | 2018-01-10 08:28 | PN- Housestaff ---
[facility] 01/10/18 08: Subjective Follow-up For: Acute diastolic congestive heart failure Acute kidney injury, improving Tele-Events Since Last Visit: Sinus rhythm with heart rate between 5694 Subjective: No overnight events. Patient remained afebrile,. Seen and examined this morning. Patient denied chest pain, short of breath, nausea, vomiting, chill, fever, abdominal pain dysuria. He is on room air maintaining saturation 95%. Review of Systems Constitutional: Denies: chills, fever. EENTM: Reports: no symptoms. Cardiovascular: Denies: chest pain, palpitations. Respiratory: Denies: cough, short of breath, sputum production. Gastrointestinal: Denies: abdominal pain, diarrhea, nausea, vomiting. Genitourinary: Reports: no symptoms. Neurological/Psychological: Reports: no symptoms. Objective Last 24 Hrs of Vital Signs/I&O Vital Signs Date Time Temp Pulse Resp B/P B/P Pulse O2 O2 Flow FiO2 Mean Ox Delivery Rate 01/10 08 70 120/80 01/10 0824 70 120/80 01/10 0655 98.4 70 20 120/80 95 Room Air 01/09 2210 98.4 70 16 118/72 93 Room Air 01/09 1600 Room Air 01/09 1448 98.8 66 20 140/76 96 Room Air 01/09 1156 98.6 79 22 132/76 97 Room Air Room Air 01/09 0858 98.4 65 18 148/81 01/09 0858 98.4 65 18 148/81 98 Nasal 2.0L Cannula Intake & Output 01/10 1600 01/10 0800 01/10 0000 Intake Total 300 450 Output Total 600 Balance 300 -150 Intake, Oral 300 450 Output, Urine 600 Patient 262 lb Weight Weight Bed scale Measurement Method Physical Exam General Appearance: Alert, Oriented X3, Cooperative Skin: No Rashes Skin Temp/Moisture Exam: Warm/Dry Sepsis Skin Exam (color): Normal for Ethnicity HEENT: Atraumatic, PERRLA, EOMI Neck: Supple Cardiovascular: Normal S1, Normal S2 Lungs: Clear to Auscultation Abdomen: Soft, No Tenderness Neurological: Normal Speech, Strength at 5/5 X4 Ext, Normal Tone Extremities: No Edema Assessment/Plan Assessment: 72-year-old male with past medical history significant for MA status post drug eluting stent placement in 2018, on dual antiplatelet agents, gout, diabetes mellitus, hypertension, carpal tunnel syndrome presented to the hospital with chief complaint of acute worsening shortness of breath since morning. Patient is being observed on telemetry floor for following problems. Acute diastolic congestive heart failure: -Patient presented with shortness of breath. -Considering patient's recent history of MA status post stent placement there was concern of heart failure that can cause patient shortness of breath that is why patient was placed on observation on telemetry floor. -His proBNP was 1400 and there was mild pulmonary congestion. -His echocardiogram showed ejection fraction 55% with no wall motion abnormality. Patient had mildly thickness left ventricular wall. -His troponin remained negative. -Continue Lasix 20 mg p.o. daily -Continue lisinopril 20 mg daily -Continue Brilinta 90 mg daily Acute kidney injury:IMPROVING -Possibly due to prerenal -Patient presented with creatinine 1.5 and GFR 46 -Continue monitoring his creatinine and BUN -Avoid nephrotoxic medications -Encouraged patient to drink orally. -Today his creatinine level is 1.3. History of recent MA status post stent placement.: -Continue aspirin -Continue Brilinta 90 mg daily History of hyperlipidemia and hypertension: -Continue Lipitor -Continue metoprolol History of diabetes: -Type 2 diabetes -Accu-Cheks, his blood sugar was 92 -Continue insulin NovoLog according to sliding scale -Holding his glimepiride History of gout: -Continue allopurinol and prednisone DVT prophylaxis: Mechanical and subcutaneous heparin CODE STATUS; Full code Problem List: 1. CHF (congestive heart failure) Pain Ratin Pain Location: NONE Pain Goal: Remain pain free Pain Plan: PAIN PATHWAY Tomorrow's Labs & Rationales: ABHI Rivera MD,Miya 01/10/18 1217: Attending MD Review Statement Attending Statement Attending MD Statement: examined this patient, discuss w/resident/PA/COAL CUTTER, agreed w/resident/PA/COAL CUTTER, discussed with family, reviewed EMR data (avail), discussed with nursing, reviewed images, amended to note Attending Assessment/Plan: Patient seen and examined, overall doing better. Breathing is without any problem. Vital signs are stable. Echo cardiogram shows ejection fraction 55%. And some diastolic dysfunction. Patient will be discharged on oral Lasix. He has been seen by lpn and they are okay with patient getting discharge and further follow-up with his own lpn as an outpatient.
[2018-01-10] MEDS ORDERED: LASIX20 M1 PO ×3 (09:53→11:38)
--- NOTE | 2018-01-10 09:58 | Patient Discharge Instructions ---
Discharge Instructions General Discharge Information You were seen/treated for: Acute diastolic congestive heart failure Acute kidney injury Watch for these problems: Chest pain, short of breath, nausea, vomiting, palpitation, leg swelling, weakness and dysuria if you experience any of these symptoms please come to ED record. Primary care physician. Special Instructions: Follow-up with your primary care physician in 1 week Follow-up with your bow rehairer in 1 week Diet Recommended Diet: Heart Healthy Activity Activity Self Limited: Yes Acute Coronary Syndrome Inclusion Criteria At DC or during hospital stay patient has or had the following: ACS DIAGNOSIS No Discharge Core Measures Meds if any: Prescribed or Continued at Discharge Meds if any: NOT Prescribed or Continued at Discharge Congestive Heart Failure Inclusion Criteria At DC or during hospital stay patient has or had the following: CHF DIAGNOSIS Yes Discharge Core Measures Meds if any: Prescribed or Continued at Discharge SID/ARB for EF <40% Yes Meds if any: NOT Prescribed or Continued at Discharge Cerebrovascular accident Inclusion Criteria At DC or during hospital stay patient has or had the following: CVA/TIA Diagnosis No Discharge Core Measures Meds if any: Prescribed or Continued at Discharge Meds if any: NOT Prescribed or Continued at Discharge Venous thromboembolism Inclusion Criteria VTE Diagnosis No VTE Type NONE VTE Confirmed by (Test) NONE Discharge Core Measures - Per Current guidelines, there needs to be overlap - treatment for the first 5 days of Warfarin therapy. - If discharged on Warfarin prior to 5 days of - overlap therapy, the patient will need to be - assessed for post discharge needs including - *Post discharge parental anticoagulation - *Warfarin and/or parental anticoagulation education - *Follow up date to check INR post discharge At least 5 days overlap therapy as Inpatient No Meds if any: Prescribed or Continued at Discharge Note: Overlap Therapy is Warfarin and Anticoagulant Meds if any: NOT Prescribed or Continued at Discharge
--- NOTE | 2018-01-10 10:03 | PN- Cardiology ---
Subjective Subjective: Patient feels well. He has had no chest pain or shortness of breath since admission. Upon further questioning he states that he was taking lisinopril/HCTZ but he was changed to plain lisinopril due to mild renal insufficiency. Review of Systems: Eyes no blurred or double vision Ears no deafness or ringing Nose and throat no recurrent sinusitis Lungs per history of present illness Heart per history of present illness Abdomen no nausea vomiting Musculoskeletal occasional muscle and joint pains Psych no anxiety or depression Neuro without recurrent headache or seizures Endocrine no heat or cold intolerance Objective Vital Signs and I&Os Vital Signs Date Time Temp Pulse Resp B/P B/P Pulse O2 O2 Flow FiO2 Mean Ox Delivery Rate 01/11 824 70 120/80 01/11 824 70 120/80 01/10 0655 98.4 70 20 120/80 95 Room Air 01/09 2210 98.4 70 16 118/72 93 Room Air 01/09 1600 Room Air 01/09 1448 98.8 66 20 140/76 96 Room Air 01/09 1156 98.6 79 22 132/76 97 Room Air Room Air Intake & Output 01/10 1600 01/10 0000 01/09 1600 01/09 0000 Intake Total 300 450 800 0 Output Total 600 Balance 300 -150 800 0 Intake, Oral 300 450 800 0 Output, Urine 600 Patient 262 lb 255 lb 245 lb Weight Weight Bed scale Bed scale Reported by Patient Measurement Method Physical Exam: Patient is a well-developed well-nourished male appearing in no acute distress HEENT is unremarkable Neck is supple there is no JVD Lungs are clear Heart regular rhythm S1 and S2 are normal no murmurs gallops or rubs Abdomen bowel sounds positive Extremities without edema Neuro without focal deficits Psych cooperative Lymph no adenopathy Current Medications: Current Medications Sig/Kimberly Start time Last Medication Dose Route Stop Time Status Admin Acetaminophen 650 MG Q6P PRN 01/09 945 AC PO Allopurinol 100 MG DAILY 01/10 900 AC 01/10 PO 821 Aspirin 81 MG DAILY 01/10 900 AC 01/10 PO 819 Atorvastatin Calcium 80 MG DAILY 01/10 900 AC 01/10 PO 820 Furosemide 40 MG DAILY 01/10 900 DC PO Furosemide 20 MG DAILY 01/10 900 AC 01/10 PO 820 Heparin Sodium 5,000 UNIT Q8 09/08 0945 AC (Porcine) SC Insulin Aspart 0 TIDAC 01/09 1000 AC 01/09 SC 1300 Lisinopril 20 MG DAILY 01/10 900 AC 01/10 PO 0824 Magnesium Oxide 400 MG ONE ONE 01/10 845 DC PO 01/10 846 Metoprolol Succinate 100 MG DAILY 01/10 900 AC 01/10 PO 24 Prednisone 5 MG DAILY 01/09 930 AC 01/10 PO 820 Ticagrelor 90 MG BID 01/09 2100 AC 01/10 PO 823 Results Last 48 Hrs of Labs/Mics: Laboratory Tests 01/10/18 0635: Anion Gap 8, Estimated GFR 55 L, BUN/Creatinine Ratio 19.2, Magnesium 1.7, CBC w Diff NO MAN DIFF REQ, RBC 4.42 L, MCV 87.0, MCH 28.7, MCHC 33.0, RDW 16.6 H, MPV 9.0, Gran % 76.8 H, Lymphocytes % 14.6 L, Monocytes % 6.5, Eosinophils % 1.7, Basophils % 0.4, Absolute Granulocytes 7.3 H, Absolute Lymphocytes 1.4, Absolute Monocytes 0.6, Absolute Eosinophils 0.2, Absolute Basophils 0 01/09/18 2000: Troponin I 0.09 01/09/18 1320: Troponin I 0.08 01/09/18 0723: Anion Gap 8, Estimated GFR 55 L, BUN/Creatinine Ratio 20.0, Glucose 153 H, Calcium 8.6, Magnesium 1.5 L, Total Bilirubin 0.8, AST 41, ALT 68, Alkaline Phosphatase 129 H, Troponin I 0.08, Qkx-R-Pscrodovuuh Pept 1400 H, Total Protein 6.3, Albumin 3.7, Globulin 2.6, Albumin/Globulin Ratio 1.4, CBC w Diff NO MAN DIFF REQ, RBC 4.39 L, MCV 87.4, MCH 28.6, MCHC 32.7 L, RDW 16.4 H, MPV 9.0, Gran % 82.8 H, Lymphocytes % 8.8 L, Monocytes % 6.5, Eosinophils % 1.6, Basophils % 0.3, Absolute Granulocytes 8.3 H, Absolute Lymphocytes 0.9 L, Absolute Monocytes 0.7 H, Absolute Eosinophils 0.2, Absolute Basophils 0 01/09/18 0635: Troponin I 0.10 Telemetry personally reviewed sinus bradycardia Recent Imaging Studies: Echocardiogram CONCLUSIONS Normal size left ventricle. Left ventricular wall thickness mildly increased. No obvious regional wall motion abnormalities. Left ventricular ejection fraction is estimated at 55 %. Normal right ventricular size and function. Mild left atrial dilatation. Unable to estimate the right ventricular systolic pressure. No pericardial effusion. Viet Rivera M.D. Assessment/Plan Assessment/Plan 1. Shortness of breath secondary to acute diastolic heart failure with elevated BNP and vascular congestion noted on chest x-ray. His symptoms have now resolved. 2. Coronary disease status post ARSALAN to the proximal RCA September 2017 no evidence for myocardial infarction 3. Chronic renal insufficiency 4. Hypertension stable 5. Diabetes Recommendations 1. I would continue his current medications including low-dose Lasix 2. Recommend close follow-up as an outpatient. He will call Dr. Chavez for an appointment 3. Stressed importance of low-salt diet 4. Patient will require a basic metabolic panel this week to assess renal function Continue telemetry? No
== END 2018-01-10 11:57 ==
LOC: ERH 07:03 → ERHI 08:22 → ENRESERV 09:34 → ENTRNSPT 11:03 → EDTRNSPT 11:19 → EDTRNSPTSTS 11:19 → CMPTRNSPT 11:36 → 1NO 12:09 → ENPENDDIS 01-10 11:32 → 1NO 01-10 11:57
PROVIDERS: Emergency Medicine; Hospitalist
DX: I13.0 Hypertensive heart and chronic kidney disease with heart failure and stage 1 through stage 4 chronic kidney disease, or unspecified chronic kidney disease (principal); I50.31 Acute diastolic (congestive) heart failure; N18.9 Chronic kidney disease, unspecified; I21.9 Acute myocardial infarction, unspecified; Z95.5 Presence of coronary angioplasty implant and graft; M10.9 Gout, unspecified; Z79.4 Long term (current) use of insulin; Z79.82 Long term (current) use of aspirin; Z79.52 Long term (current) use of systemic steroids; E78.5 Hyperlipidemia, unspecified; N17.9 Acute kidney failure, unspecified; I25.10 Atherosclerotic heart disease of native coronary artery without angina pectoris; E11.22 Type 2 diabetes mellitus with diabetic chronic kidney disease; Z79.84 Long term (current) use of oral hypoglycemic drugs; E83.42 Hypomagnesemia
CPT/HCPCS: 36592; 71045; 82436; 93005; 93010; 93306; 96374; G0378; J1644; J1940; J3490; J7508; J7512